=== PATIENT | male | born 1995 ===

== ENCOUNTER 2016-07-06 21:42 | Emergency (ER) | payer SELFPAY ==
[2016-07-06 23:08] VITALS: BP 129/83
--- NOTE | 2016-07-07 07:54 | XRay Report ---
Left foot: Pain. AP and lateral projections of the foot are unremarkable. The bones joints and soft tissues all appear within normal limits. Of note is reparative metal hardware in the distal fibula.
--- NOTE | 2016-07-08 06:57 | ED Elopement Review ---
ED Pt Elopement review - Call Back decision Pt Call Back Decision: No action required
== END 2016-07-07 05:30 | disposition left against medical advice (07) ==
LOC: ED 21:42
DX: M79.672 Pain in left foot (principal); Z53.21 Procedure and treatment not carried out due to patient leaving prior to being seen by health care provider